=== PATIENT | male | born 1980 | race Caucasian/White ===

== ENCOUNTER 2018-03-26 15:42 | Emergency (ER) | payer OTHER ==
[2018-03-26 16:16] VITALS: BP 103/74; PULSE 100; TEMP 98.6; BMI 28.5
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
== END 2018-03-26 18:26 | disposition home or self-care (01) ==
LOC: JERFT 15:42
DX: S13.4XXA Sprain of ligaments of cervical spine, initial encounter (principal); V49.59XA Passenger injured in collision with other motor vehicles in traffic accident, initial encounter; Y92.488 Other paved roadways as the place of occurrence of the external cause; Y93.89 Activity, other specified; Y99.8 Other external cause status
CPT/HCPCS: 99281-25